=== PATIENT | male | born 1940 | race Caucasian/White ===

== ENCOUNTER 2024-06-01 01:44 | Emergency (ER) | payer MEDICARE, OTHER, SELFPAY ==
--- NOTE | ~2024-06-01 | CT_ITS ---
CLINICAL HISTORY: unwitnessed fall hs CT cervical spine without contrast Comparison: None Findings: Normal vertebral body alignment. There is multilevel cervical spondylosis. There is multilevel disc osteophyte complexes. There is multilevel multifactorial central canal and foraminal stenoses most significant at C5-C6. There is multilevel uncinate and facet spondylosis. There is multilevel multifactorial central canal and foraminal stenoses. There is significant disc space narrowing C5-C6. There are mild superior and inferior endplate deformities T1 and mild superior endplate deformity of T2. There is mild inferior endplate deformity of C7. There is S shaped cervical thoracic scoliosis partially included on the field of view No acute findings on limited view of the intracranial contents. Soft tissues of the neck are normal. Lung apices are clear. IMPRESSION: Multilevel cervical spondylosis as above Mild endplate deformities of C7, T1 and T2 more likely secondary to Schmorl's nodes and degenerative changes rather than acute mild endplate fractures which can not be excluded. If there is strong clinical concern follow-up MRI cervical spine could be performed. Comparison to any prior exams is recommended This document has been electronically signed by: Lukas Manzo MD on 06/01/2024 03:59:47
--- NOTE | ~2024-06-01 | XR_ITS ---
CLINICAL HISTORY: trauma 1 view chest x-ray Comparison: None Findings: There are mild bibasilar pulmonary opacities without consolidation. No pleural effusions. Normal size heart. No acute fracture. IMPRESSION: Mild bibasilar pulmonary opacities This document has been electronically signed by: Lukas Manzo MD on 06/01/2024 05:17:15
--- NOTE | ~2024-06-01 | CT_ITS ---
CLINICAL HISTORY: unwitnessed fall headstrike CT head without contrast Comparison: None Findings: No intra-axial mass, midline shift, hydrocephalus, or acute hemorrhage. There are significant central and cortical involutional changes. Mild old small-vessel white matter ischemic changes. There is left frontal convexity soft tissue hematoma and laceration with small air bubbles within the soft tissues. Nondisplaced bilateral nasal bone fractures. There is bilateral lens replacement surgery. There is no sinus or mastoid fluid. The orbits are otherwise unremarkable. No skull fracture. IMPRESSION: significant central and cortical involutional changes. Mild old small-vessel white matter ischemic changes. There is left frontal convexity soft tissue hematoma and laceration with small air bubbles within the soft tissues. Nondisplaced bilateral nasal bone fractures. This document has been electronically signed by: Lukas Manzo MD on 06/01/2024 04:07:48
[2024-06-01 01:56] VITALS: BP 122/64; PULSE 72; O2SAT 96
[2024-06-01 01:58] VITALS: BP 111/64; PULSE 77; RESP 16; TEMP 36.3; O2SAT 96; BMI 23.3
--- NOTE | 2024-06-01 02:49 | ED_ITS ---
HPI - Fall General Chief Complaint: Fall Stated Complaint: FALL W/ HEADSTRIKE Time Seen by Provider: 06/01/24 02:46 Source: EMS Limitations: other (Cognitive impairment) History of Present Illness ED Provider: Julianne Gama PA-C HPI Narrative: 83-year-old male with a history of Parkinson's disease, cognitive impairment, gait instability, hypertension, hyperlipidemia, BPH, GERD, not on anticoagulation, presents after unwitnessed fall from [facility]. Patient states he ?lost his footing?, while trying to go to the bathroom. Patient complains of anterior chest pain since the fall, that he fell sideways hitting the bed. Related Data Home Medications ?Medication ?Instructions ?Recorded ?Confirmed Lactobacillus acidophilus 2 2,000 mmu cells PO DAILY 03/25/22 billion cell tablet ascorbic acid (vitamin C) 1,000 mg 1 g PO Q6H 03/25/22 capsule aspirin 81 mg tablet,delayed 81 mg PO DAILY 03/25/22 release atorvastatin 40 mg tablet 40 mg PO DAILY 03/25/22 calcium carbonate (Calcium 500) 500 mg PO DAILY 03/25/22 losartan 50 mg tablet 50 mg PO DAILY 03/25/22 milk thistle 175 mg tablet 175 mg PO BID 03/25/22 multivitamin (One Daily 1 tab PO DAILY 03/25/22 Multivitamin tablet) omega 7-zow-rlp-fish oil 1,200 mg cap PO 03/25/22 (144 mg-216 mg) capsule (Fish Oil) ubiquinone 90 mg disintegrating mg PO 03/25/22 tablet Allergies Allergy/AdvReac Type Severity Reaction Status Date / Time gemfibrozil [From Lopid] Allergy Unknown Unknown Verified 06/01/24 02:13 lisinopril Allergy Unknown Unknown Verified 06/01/24 02:13 Review of Systems Review of Systems: Yes all other systems are reviewed and are negative Constitutional: Constitutional: Denies fatigue, Denies fever(s) and Denies headache(s) ENT: Denies dizziness and Denies headache(s) Cardiovascular: Cardiovascular: Reports chest pain and Denies dyspnea Respiratory: Respiratory: Denies cough and Denies dyspnea Gastrointestinal: Gastrointestinal: Denies abdominal pain, Denies diarrhea, Denies nausea and Denies vomiting Musculoskeletal: Musculoskeletal: Denies back pain Neurologic: Denies dizziness and Denies headache(s) Endocrine: Endocrine: Denies fatigue PMFSH Past Medical History Attestation statement: The following information was validated with the patient. Surgical History (Updated 03/25/22 @ 10:03 by MIHAI Llamas) H/O colonoscopy H/O rotator cuff surgery H/O vasectomy Social History Social History (Updated 03/25/22 @ 10:02 by MIHAI Llamas) Alcohol intake: never Patient Tobacco Use Status: Former Tobacco user Advance Directives: No Advance Directives Information Provided: Yes Physical Exam Vital Signs: Vital Signs: Last Vital Signs Temp 97.3 F 06/01/24 01:58 Pulse 77 06/01/24 01:58 Resp 16 06/01/24 01:58 BP 111/64 06/01/24 01:58 Pulse Ox 96 06/01/24 01:58 O2 Del Method Room Air 06/01/24 01:58 BMI result Body Mass Index 23.3 Const: Other: Alert, laceration central forehead no longer bleeding Orientation/consciousness: oriented to person and oriented to place Chest: Other: In his to palpation over anterior chest wall, no deformity, the patient pulls my hand away while palpating Resp: Effort & Inspection: normal respiratory effort Cardio: Other: Normal peripheral perfusion Skin: Other: Warm dry no rash Neuro: General: oriented to person, oriented to place, no focal motor deficits and CN's II-XI intact bilaterally Extrem: Other: Slow movements of the extremities Psych: Other: Cooperative, flat affect Procedures Laceration Laceration 1: Site: face (central forehead) Size (cm): 5 Description: linear Depth: simple, single layer Local Anesthetic: lidocaine 1% and with epi Amount of anesthesia used (mL): 5 Pre-repair: irrigated extensively Skin layer closed with: nylon Size (cm): 3-0 Number of sutures: 10 Technique: simple, interrupted Medical Decision Making Medical Decision Making MDM Narrative: 83-year-old male with a history of Parkinson's disease, cognitive impairment, gait instability, hypertension, hyperlipidemia, BPH, GERD, not on anti coagulation, presents after unwitnessed fall from [facility]. Patient states he ?lost his footing?, while trying to go to the bathroom. Patient complains of anterior chest pain since the fall, that he fell sideways hitting the bed. Problem: Age, Parkinson's, cognitive impairment with gait instability History: Per patient which is limited and EMS I have considered the following differential diagnoses: Intracranial hemorrhage, cervical spine injury, rib fracture Plan: We will be scanning the head neck and the chest based on the patient's pain related complaint. We will hold on labs unless the patient has sustained an acute injury. This seems purely mechanical. The laceration will require simple repair, updating his tetanus, the patient can not tell me if it is up-to-date. It is reassuring that the patient is not actively vomiting, has no neuro deficits to suggest an intracranial hemorrhage. He is not complaining of neck pain, he only complains of central focal chest discomfort. Given no deformity, it is likely just a contusion. I have independently reviewed the following tests: CT brain: CT cervical spine: Chest x-ray: Discharge Plan Discharge Clinical Impression: Forehead laceration Patient Disposition: Still a Patient Instructions: Laceration (ED) Additional Instructions: The CT scan of your brain and cervical spine were negative for acute injury. The chest x-ray was also negative for acute injury. You sustained a laceration to the forehead. See home care instructions. Ten stitches were used to repair the laceration, they can be removed in 7 days. Watch for signs of infection which would include redness, swelling, pus draining from the site or fever. Your tetanus vaccine was updated today, it is valid for 10 years. Follow up with your primary care provider next week. Prescriptions: No Action Lactobacillus acidophilus 2 billion cell tablet 2,000 mmu cells PO DAILY aspirin 81 mg tablet,delayed release (DR/EC) 81 mg PO DAILY atorvastatin 40 mg tablet 40 mg PO DAILY calcium carbonate [Calcium 500] 500 mg calcium (1,250 mg) tablet,chewable 500 mg PO DAILY omega 4-gec-kqw-fish oil [Fish Oil] 1,200 (144-216) mg capsule PO losartan 50 mg tablet 50 mg PO DAILY milk thistle 175 mg tablet 175 mg PO BID Rx Instructions: give with meal/snack multivitamin [One Daily Multivitamin] Tablet 1 tab PO DAILY ascorbic acid (vitamin C) 1,000 mg capsule 1 g PO Q6H ubiquinone 90 mg tablet,disintegrating PO Print Language: Italian
--- NOTE | 2024-06-01 02:53 | PC.NURSE ---
Placed on bedpan x3, no bowel movements. C-spine collar remains in place. Imaging completed, awaiting results. BAILEY Gama at bedside for sutures.
[2024-06-01 04:00] VITALS: BP 122/63; PULSE 61; RESP 12; TEMP 36.2; O2SAT 96
[2024-06-01] MEDS: Diphth,Pertus(ACell),Tet Adult 0.5 ML SYRINGE IM (04:54)
[2024-06-01 06:05] VITALS: BP 122/63; PULSE 61; RESP 12; TEMP 36.2; O2SAT 96
[2024-06-01 07:57] VITALS: BP 117/61; PULSE 64; RESP 16; TEMP 37; O2SAT 98
--- NOTE | 2024-06-01 08:02 | PC.NURSE ---
report given to ANGIE Villeda at [facility] at this time. pt leaving via [facility] at this time.
[2024-06-01 08:03] VITALS: BP 117/61; PULSE 64; RESP 16; TEMP 37; O2SAT 98
== END 2024-06-01 08:03 | disposition home or self-care (01) ==
PROVIDERS: Emergency Provider Internal Medicine
DX: S01.81XA Laceration without foreign body of other part of head, initial encounter (principal); G20.A1 Parkinson's disease without dyskinesia, without mention of fluctuations; R51.9 Headache, unspecified; M54.2 Cervicalgia; R07.89 Other chest pain; I10 Essential (primary) hypertension; W19.XXXA Unspecified fall, initial encounter; Y93.9 Activity, unspecified; Y92.9 Unspecified place or not applicable; Y99.8 Other external cause status; Z79.899 Other long term (current) drug therapy; Z87.891 Personal history of nicotine dependence; Z23 Encounter for immunization
CPT/HCPCS: 70450; 71045; 72125; 90471; 90715; 99284

== ENCOUNTER → 2024-06-01 03:15 | Outpatient (BNV) | payer MEDICARE, OTHER, SELFPAY | PROVIDERS: Emergency Provider Internal Medicine; Visit Provider Radiology Diagnostic Radiology | DX: M47.812 Spondylosis without myelopathy or radiculopathy, cervical region (principal); M50.30 Other cervical disc degeneration, unspecified cervical region; S02.2XXA Fracture of nasal bones, initial encounter for closed fracture; S06.320A Contusion and laceration of left cerebrum without loss of consciousness, initial encounter; S29.9XXA Unspecified injury of thorax, initial encounter | CPT/HCPCS: 70450; 71045; 72125 ==

== ENCOUNTER 2024-09-09 10:06 | Emergency (ER) | payer MEDICARE, OTHER, SELFPAY ==
--- NOTE | ~2024-09-09 | CT_ITS ---
CLINICAL HISTORY: s p fall CT cervical spine without contrast Comparison: 06/01/24 Findings: Mild multilevel anterolisthesis /retrolisthesis, degenerative. No fracture. No severe central spinal canal stenosis. No epidural hematoma. Normal thickness of the prevertebral soft tissues. The lung apices are clear. Impression: No acute findings. This document has been electronically signed by: Alcira Sanabria MD on 09/09/2024 16:07:30
--- NOTE | ~2024-09-09 | CT_ITS ---
CLINICAL HISTORY: fall and head injury CT head without contrast Comparison: 06/01/24 Findings: No acute hemorrhage. No extra-axial fluid collection. No hydrocephalus, mass-effect or herniation. Khan-white differentiation is maintained. There is patchy hypoattenuation of the periventricular and deep white matter, which is most likely the sequela of mild chronic small vessel ischemic disease and is similar to the prior study. No acute orbital pathology. No definitive acute soft tissue abnormality. Left temporal scalp lipoma measuring 0.4 x 2.5 cm. No acute fracture. Chronic nasal bone fractures. The visualized paranasal sinuses are predominantly clear. The mastoid air cells are clear. Impression: No acute findings. This document has been electronically signed by: Alcira Sanabria MD on 09/09/2024 16:04:27
[2024-09-09 10:14] VITALS: BP 117/60; BP 121/57; PULSE 65; PULSE 68; RESP 18; TEMP 36.5; O2SAT 92; O2SAT 95; BMI 22.7
--- NOTE | 2024-09-09 10:16 | ED_ITS ---
HPI - Fall General Chief Complaint: Fall Stated Complaint: FALL WITH HEADSTRIKE Time Seen by Provider: 09/09/24 10:09 Source: patient, EMS and old records reviewed Mode of arrival: EMS Limitations: other (Cognitive disorder, being a poor historian.) History of Present Illness ED Provider: DR. Lawson HPI Narrative: 83-year-old male with history of Parkinson's disease, cognitive impairment, gait instability, HTN, HLD, BPH, GERD not taking anticoagulation came in from group home after sustained unwitnessed fall, patient was trying to get out of his chair lost balance fell backward, struck his head on a chair, unknown LOC. Patient is a poor historian can not obtain history from him at this point. Came in with [facility] form stating DNR/DNI/do not transfer to the hospital. Related Data Home Medications ?Medication ?Instructions ?Recorded ?Confirmed Lactobacillus acidophilus 2 2,000 mmu cells PO DAILY 03/25/22 billion cell tablet ascorbic acid (vitamin C) 1,000 mg 1 g PO Q6H 03/25/22 capsule aspirin 81 mg tablet,delayed 81 mg PO DAILY 03/25/22 release atorvastatin 40 mg tablet 40 mg PO DAILY 03/25/22 calcium carbonate (Calcium 500) 500 mg PO DAILY 03/25/22 losartan 50 mg tablet 50 mg PO DAILY 03/25/22 milk thistle 175 mg tablet 175 mg PO BID 03/25/22 multivitamin (One Daily 1 tab PO DAILY 03/25/22 Multivitamin tablet) omega 4-rrt-hsg-fish oil 1,200 mg cap PO 03/25/22 (144 mg-216 mg) capsule (Fish Oil) ubiquinone 90 mg disintegrating mg PO 03/25/22 tablet Allergies Allergy/AdvReac Type Severity Reaction Status Date / Time gemfibrozil [From Lopid] Allergy Unknown Unknown Verified 09/09/24 10:16 lisinopril Allergy Unknown Unknown Verified 09/09/24 10:16 Review of Systems 2 Review of Systems: All other systems are reviewed and are negative Constitutional: Reports as per HPI and Reports no additional constitutional complaints Eyes: Reports as per HPI and Reports no additional eye complaints Reports system reviewed and no additional complaints, except as documented Cardiovascular: Reports as per HPI and Reports no additional cardiovascular complaints Respiratory: Reports as per HPI and Reports no additional respiratory complaints Gastrointestinal: Reports as per HPI and Reports no additional gastrointestinal complaints Genitourinary: Reports no additional female genitourinary complaints Musculoskeletal: Reports no additional musculoskeletal complaints Skin/Breast: Reports system reviewed and no additional complaints, except as docu Psychiatric: Reports no additional psychiatric complaints Endocrine: Reports no additional endocrine complaints Hematologic/Lymphatic: Reports no additional hematologic/lymphatic complaints Allergic/Immunologic: Reports no additional allergic/immunologic complaints Reports system reviewed and no additional complaints, except as documented and Reports Abnormal speech present REPLACED BY [facility] Past Medical History Surgical History H/O colonoscopy H/O rotator cuff surgery H/O vasectomy Social History Social History Unable to assess alcohol history related to: Unknown Alcohol intake: never Patient Tobacco Use Status: Former Tobacco user Use of substances other than those prescribed or required for medical reasons: No Advance Directives: No Advance Directives Information Provided: No Do you have a plan to hurt others: No Plan Physical Exam 2 Vital Signs: Vital Signs: Last Vital Signs Temp 98 F 09/09/24 14:03 Pulse 65 09/09/24 14:03 Resp 16 09/09/24 14:03 BP 125/75 09/09/24 14:03 Pulse Ox 95 09/09/24 14:03 O2 Del Method Room Air 09/09/24 14:03 BMI result Body Mass Index 22.7 Vital signs have been reviewed and appear to be correct. Blood pressure elevated. Heart rate normal. Respiratory rate normal. Temperature normal. Oxygen saturation normal. Appearance: Alert. Oriented X3. No acute distress. Head: Normal external exam. Normocephalic. 2 x 2 cm area of occipital hematoma, no active bleeding, no tenderness, no step-off. No Roberto signs noted. No raccoon eyes noted Eyes: PERRLA. EOMI. Conjunctiva and sclera normal. Eyelids normal. ENT: TM's Normal. Pharynx normal. Uvula midline. Moist mucous membranes. No trismus noted. No drooling noted. No muffled voice noted. Neck: Normal inspection. Neck supple. FROM. No adenopathy. Thyroid Normal. No meningeal signs. No neck mass noted. CVS: Normal heart rate and rhythm. Heart sound normal. No murmurs noted. Pulses normal throughout. Respiratory: No respiratory distress. Painless inspiration. Breath sounds normal. No wheezes/rales/rhonchi noted. Chest nontender. No accessory muscle usage noted or decreased air movement noted. Abdomen: Soft and nontender. Bowel sounds normal in all 4 quadrants. No distention noted. No organomegaly noted. No visible injury noted. Back: No CVA tenderness. Full range of motion noted. Skin: Skin warm and dry. Normal skin color. Normal skin turgor. No rashes/lesions/lacerations noted. Extremities: No lower extremity edema. Extremities exhibit normal range of motion. Extremities nontender. Neuro: Oriented X 3. Cranial nerve exam: II-XII are grossly intact No motor deficit. No sensory deficit. Reflexes normal. Course Reevaluation(s) Reevaluation #1: S/p mechanical fall with head injury, no acute intra cranial or cervical injuries, stable labs, UTI will start the patient on cefuroxime 250 mg b.i.d. for 7 days and encouraged to drink plenty of fluids. Time: 14:31 Medications Administered Discontinued Medications Generic Name Dose Route Start Last Admin Trade Name Freq PRN Reason Stop Dose Admin Acetaminophen 650 mg 09/09/24 14:36 09/09/24 14:48 Acetaminophen 325 Mg Tablet PO 09/09/24 14:37 650 mg ONCE ONE Administration Cefuroxime Axetil 250 mg 09/09/24 14:30 09/09/24 14:48 Cefuroxime Axetil 250 Mg Tablet PO 09/09/24 14:31 250 mg ONCE ONE Administration Medical Decision Making Differential Diagnosis Differential Diagnoses: The differential diagnosis associated with the presentation includes (Intracranial bleed, cervical spine injury, extremity injury, chest injury, abdominal injury, back injury, UTI, electrolyte derangement, severe anemia.) Admission/Observation Consideration of admission/observation: Escalation of care including admission/observation considered Lab Data MDM Lab Attestation statement: I reviewed the patient's lab results. 09/09/24 10:26 09/09/24 10:26 Labs: Lab Results 09/09/24 09/09/24 Range/Units 10: 13:55 WBC 8.3 (4.8-10.8) X10*3/uL RBC 4.37 L (4.60-5.80) X10*6/uL Hgb 12.9 L (14.0-18.0) g/dl Hct 38.1 L (42.0-52.0) % MCV 87.2 (80.0-98.0) fL MCH 29.5 (27.0-33.0) pg MCHC 33.9 (31.0-36.0) g/dl RDW 13.9 (11.0-16.0) % Plt Count 232 (160-400) X10*3/uL MPV 9.4 (9.4-12.4) fL Immature Gran % (Auto) 0.6 H (0.0-0.4) % Neut % (Auto) 72.8 (45-73) % Lymph % (Auto) 17.4 L (20-40) % [place] % (Auto) 5.9 (2-11) % Eos % (Auto) 2.9 (0-4) % Baso % (Auto) 0.4 (0-2) % Lymph # (Auto) 1.5 (1.2-4.9) X10*3/uL [place] # (Auto) 0.5 (0.1-1.2) X10*3/uL Eos # (Auto) 0.2 (0.0-0.4) X10*3/uL Baso # (Auto) 0.0 (0.0-0.2) X10*3/uL Abs Immat Gran (auto) 0.05 H (0.00-0.03) X10*3/uL Absolute Neuts (auto) 6.1 (2.0-8.3) x10*3/uL Absolute Nucleated RBC 0.000 (0.0-0.012) X10*3/uL Nucleated RBC % (auto) 0.0 (0.0-0.2) /100WBC Sodium 143 (135-145) mmol/L Potassium 4.2 (3.3-5.1) mmol/L Chloride 109 H (96-108) mmol/L Carbon Dioxide 26 (22-29) mmol/L Anion Gap 12 (12-20) BUN 21 H (9-16) mg/dL Creatinine 0.99 (0.5-1.4) mg/dL Estim Creat Clear Calc 51.0 Estimated GFR > 60 Random Glucose 105 (60-115) mg/dL Calcium 9.1 (8.4-10.2) mg/dL Urine Color Yellow Urine Appearance Cloudy Urine pH 7.0 (5.0-9.0) Ur Specific [place] 1.015 (1.005-1.025) Urine Protein Negative (Neg-Trace) mg/dL Urine Glucose (UA) Negative (Negative) mg/dL Urine Ketones Negative (Negative) mg/dL Urine Blood Small (1+) H (Negative) Urine Nitrite Negative (Negative) Ur Leukocyte Esterase Large (3+) H (Negative) Urine RBC 3-5 H (0-2) /HPF Urine WBC >50 H (0-5) /HPF Ur Squamous Epith Cells 0-2 (0-2) /HPF Urine Bacteria Trace (None Seen) Hyaline Casts 0-2 (0-2) /LPF Independent Interpretation I performed an independent interpretation of an: CT Scan (Head/cervical spine: No acute pathology.) Radiology Impression Discussion of test interpretation with radiology: I have reviewed the radiologist's reading. Discharge Plan Discharge Clinical Impression: Accident due to mechanical fall without injury Patient Disposition: Xfer SNF Instructions: Fall Prevention (ED) Prescriptions: No Action Lactobacillus acidophilus 2 billion cell tablet 2,000 mmu cells PO DAILY aspirin 81 mg tablet,delayed release (DR/EC) 81 mg PO DAILY atorvastatin 40 mg tablet 40 mg PO DAILY calcium carbonate [Calcium 500] 500 mg calcium (1,250 mg) tablet,chewable 500 mg PO DAILY omega 4-njp-qji-fish oil [Fish Oil] 1,200 (144-216) mg capsule PO losartan 50 mg tablet 50 mg PO DAILY milk thistle 175 mg tablet 175 mg PO BID Rx Instructions: give with meal/snack multivitamin [One Daily Multivitamin] Tablet 1 tab PO DAILY ascorbic acid (vitamin C) 1,000 mg capsule 1 g PO Q6H ubiquinone 90 mg tablet,disintegrating PO Print Language: Trinidadian
--- NOTE | 2024-09-09 10:20 | PC.NURSE ---
pt awake/alert to self, aware hes at a hospital. pt currently denying pain, c-collar removed by provider, tech at bedside to draw labs, pt to have dry ct scan, call [facility] within reach, plan of care ongoing.
--- NOTE | 2024-09-09 10:27 | PC.NURSE ---
spoke with Cynthia ADAMS from [facility] who reported the pt was completing a stand and pivot out of his wheel chair to his bed when he fell backwards, hitting the back of his head on the wheel chair. according to the RN there she does not believe he is on thinners, nor did he lose consciousness. pt does not ambulate at baseline he is able to stand and pivot with assistance.
[2024-09-09 10:29] LABS: MANUAL DIFF FLAG NO
[2024-09-09 10:32] LABS: Basophils Percent Auto 0.4 % (0-2); Eosinophils Absolute Auto 0.2 X10*3/uL (0.0-0.4); Eosinophils Percent Auto 2.9 % (0-4); Hematocrit 38.1 % (42.0-52.0); Hemoglobin 12.9 g/dl (14.0-18.0); Imm Gran Abs Auto 0.05 X10*3/uL (0.00-0.03); Imm Gran Pct Auto 0.6 % (0.0-0.4); Lymphocytes Absolute Auto 1.5 X10*3/uL (1.2-4.9); Lymphocytes Percent Auto 17.4 % (20-40); Mean Corpuscular HGB Conc 33.9 g/dl (31.0-36.0); Mean Corpuscular Hemoglobin 29.5 pg (27.0-33.0); Mean Corpuscular Volume 87.2 fL (80.0-98.0); Mean Platelet Volume 9.4 fL (9.4-12.4); Monocytes Absolute Auto 0.5 X10*3/uL (0.1-1.2); Monocytes Percent Auto 5.9 % (2-11); Neutrophils Absolute Auto 6.1 x10*3/uL (2.0-8.3); Neutrophils Percent Auto 72.8 % (45-73); Platelet Count 232 X10*3/uL (160-400); Red Blood Count 4.37 X10*6/uL (4.60-5.80); Red Cell Distribution Width 13.9 % (11.0-16.0); White Blood Count 8.3 X10*3/uL (4.8-10.8)
[2024-09-09 10:45] LABS: Anion Gap 12 (12-20); Blood Urea Nitrogen 21 mg/dL (9-16); Calcium 9.1 mg/dL (8.4-10.2); Carbon Dioxide 26 mmol/L (22-29); Chloride 109 mmol/L (96-108); Estimated Glomerular Filt Rate > 60; Glucose Random 105 mg/dL (60-115); Potassium 4.2 mmol/L (3.3-5.1); Sodium 143 mmol/L (135-145)
--- NOTE | 2024-09-09 12:00 | PC.NURSE ---
patient alert to person/place, vss, pt asking when he can discharge, rr equal/non labored, moving all extremities with ease, using urinal with assistance, call [facility] within reach, plan of care ongoing.
[2024-09-09 14:03] VITALS: BP 125/75; PULSE 65; RESP 16; TEMP 36.6; O2SAT 95
[2024-09-09 14:06] LABS: Appearance Urine Cloudy; Color Urine Yellow; Glucose Urine UA Negative (Negative); Leukocyte Esterase Urine Large (3+) (Negative); Nitrite Urine Negative (Negative); Specific Gravity - Urine 1.015 (1.005-1.025); UMIC TRIGGER UACC YES; Urine Blood Small (1+) (Negative); Urine Ketones Negative (Negative); Urine Protein Negative (Neg-Trace)
[2024-09-09 14:18] LABS: Bacteria Urine Trace (None Seen); Hyaline Casts Urine 0-2 /LPF (0-2); Squamous Epithelial Cell Urine 0-2 /HPF (0-2); UACC Culture Trigger YES; WBC Urine >50 /HPF (0-5)
[2024-09-09] MEDS: Acetaminophen 325 MG TABLET 650 MG PO (14:48)
[2024-09-09] MEDS: cefuroxime axetiL 250 MG TABLET PO (14:48)
--- NOTE | 2024-09-09 14:49 | PC.NURSE ---
pt medicated with po abx, also given tylenol for left hand pain- pt states he has arthritis.
[2024-09-09 16:01] VITALS: BP 129/71; PULSE 62; RESP 16; TEMP 36.6; O2SAT 95
--- NOTE | 2024-09-09 16:47 | PC.NURSE ---
report this nurse called [facility] to give nurse to nurse report. the phone was answered by a [employer]OR[employer]ED [employer]GE[employer] who stated she would go get a nurse to get report. this nurse waited on hold for 15 minutes without nursing staff picking up the call. this nurse will attempt to call again prior to the patient discharging back to the facility.
--- NOTE | 2024-09-09 16:57 | PC.NURSE ---
ems showed up right after hanging up with the nursing facility, attempted to call again without answer. ems crew was told this nurse sat on hold for 15 minutes without nursing staff picking up and to have nursing staff call [facility] if they need any additional information.
[2024-09-09 16:58] VITALS: BP 122/76; PULSE 66; RESP 18; TEMP 36.7; O2SAT 94
== END 2024-09-09 17:03 | disposition skilled nursing facility (03) ==
PROVIDERS: Emergency Provider Emergency Medicine
DX: R29.6 Repeated falls (principal); R26.89 Other abnormalities of gait and mobility; Z91.81 History of falling; G20.A1 Parkinson's disease without dyskinesia, without mention of fluctuations; F06.70 Mild neurocognitive disorder due to known physiological condition without behavioral disturbance; I10 Essential (primary) hypertension; E78.5 Hyperlipidemia, unspecified; Z79.82 Long term (current) use of aspirin; Z79.02 Long term (current) use of antithrombotics/antiplatelets; Z79.899 Other long term (current) drug therapy
CPT/HCPCS: 36415; 70450; 72125; 80048; 81001; 81003; 85025; 87086; 99284

== ENCOUNTER → 2024-09-09 10:15 | Outpatient (BNV) | payer MEDICARE, OTHER, SELFPAY | PROVIDERS: Emergency Provider Emergency Medicine; Visit Provider Radiology Diagnostic Radiology | DX: S09.90XA Unspecified injury of head, initial encounter (principal); W19.XXXA Unspecified fall, initial encounter | CPT/HCPCS: 70450; 72125 ==